=== PATIENT | female | born 1985 | race Caucasian/White ===

== ENCOUNTER → 2020-09-28 17:47 | Outpatient (CLI) | payer BC, SELFPAY ==
--- NOTE | ~2020-09-28 | MR_ITS ---
EXAMINATION: MR brain/brain stem wo con EXAM DATE: 09/28/2020 19:24 INDICATION: Migraine without aura, not untractable, w/o migrainosus Migraines without aura. Nausea an d vomiting. TECHNIQUE: Magnetic resonance imaging (MRI) of the brain/brain stem obtained without contrast. Clary al T1, axial diffusion, gradient echo (T2*), T1, T2, FLAIR sequences obtained. There is no prior st udy for comparison. FINDINGS: There are no areas of restricted diffusion to suggest acute infarction. There is no acute hemorrhage seen on the T2*, a hemosiderin sensitive sequence. No intraparenchymal brain mass. The ve ntricles are normal in size. There are no extra-axial collections. Flow voids are seen in the cereb ral arteries on the T2-weighted sequences consistent with their expected patency. The orbits are unr emarkable. Soft tissue is unremarkable. IMPRESSION: 1. Normal brain MRI examination. Reviewed, dictated and finalized at location A. ILLERY WORKER
== END ==
PROVIDERS: Visit Provider Psychiatry & Neurology Neurology
DX: G43.009 Migraine without aura, not intractable, without status migrainosus (principal)
CPT/HCPCS: 70551

== ENCOUNTER → 2022-06-23 10:12 | Outpatient (CLI) | payer BC, SELFPAY ==
--- NOTE | ~2022-06-23 | US_ITS ---
EXAMINATION: US pelvic complete w TV DATE: 06/23/2022 10:55 INDICATION: Right ovarian cyst. Comparison:No prior studies for comparison. TECHNIQUE: Multiple transabdominal and endovaginal sonographic images of the pelvis performed. FINDINGS: The uterus measures 8.7 x 4.2 x 4.6 cm. There is a uterine fibroid at the fundus measuring 5.4 x 5.1 x 4.8 cm. The endometrial complex measures 1 cm. The right ovary measures 4.5 x 3.6 x 5.1 cm and the left ovary measures 3.8 x 4 x 2.3 cm. In the righ t ovary there is a complicated cyst measuring 4.2 x 2.8 x 3.5 cm, likely hemorrhagic. In the left ova ry there is a minimally complicated cyst measuring 3.8 x 4 x 2.3 cm, likely hemorrhagic or proteinace ous. There are small follicles in each ovary. Normal doppler signal in both ovaries. There is no free fluid in the pelvis. There are no abnormal masses seen on either side. IMPRESSION: 1. Bilateral complicated ovarian cyst, likely hemorrhagic or proteinaceous. 2: Uterine fibroid measuring 5.4 x 5.1 x 4.8 cm at the fundus. Reviewed, dictated and finalized at location A.
== END ==
DX: N83.201 Unspecified ovarian cyst, right side (principal); N83.202 Unspecified ovarian cyst, left side; D25.9 Leiomyoma of uterus, unspecified
CPT/HCPCS: 76830; 76856

== ENCOUNTER 2024-09-28 06:40 | Outpatient (CLI) | payer BC, SELFPAY ==
--- NOTE | ~2024-09-28 | MR_ITS ---
MRI of the brain Clinical History: Migraine headache Technique: Axial and sagittal T1-weighted images were acquired. These were followed by axial T2-weigh jossue, diffusion weighted, gradient, and FLAIR images. COMPARISON: 09/28/2020 Findings: There is no abnormal signal in the brain parenchyma. No acute infarct, intracranial hemorrh age, or mass lesion. Ventricles and subarachnoid spaces are unremarkable. Orbits are unremarkable. Paranasal sinuses and m astoid air cells are clear. Major intracranial flow voids are intact. Sagittal midline structures are intact. IMPRESSION: Unremarkable exam. Reviewed, dictated and finalized at location M. RALOGY PROFESSOR IMPRESSION: Unremarkable exam.
== END 2024-09-28 06:41 | disposition home or self-care (01) ==
PROVIDERS: Visit Provider Nurse Practitioner Gerontology
DX: G43.019 Migraine without aura, intractable, without status migrainosus (principal)
CPT/HCPCS: 70551